=== PATIENT | female | born 1960 | race Two or more races ===

== ENCOUNTER 2018-07-23 17:55 | Emergency (ER) | payer OTHER ==
[~2018-07-23] VITALS: Ht 154.9 cm; Wt 66.2 kg
[~2018-07-23 17:55] MED LIST: NORVASC
[2018-07-23] MEDS ORDERED: HCTZ 25 MG TAB PO ONE (20:00)
[2018-07-23] MEDS ORDERED: cefTRIAXone SOD 1,000 MG VL IM ONE ×2 (20:00)
[2018-07-23] MEDS ORDERED: LISINOPRIL 20 MG TAB PO ONE (20:00)
[2018-07-23] MEDS ORDERED: ACETAMINOPHEN 500 MG TAB PO ONE ×2 (20:00)
[2018-07-23] MEDS ORDERED: cloNIDine HCL 0.1 MG TAB PO ONE (20:15)
[2018-07-23] MEDS ORDERED: ONDANSETRON ODT 4 MG TAB PO ONE (21:15)
[2018-07-23 21:52] VITALS: BP 139/81
== END 2018-07-23 22:01 | disposition home or self-care (01) ==
LOC: ER 17:56
DX: S61.012A Laceration without foreign body of left thumb without damage to nail, initial encounter (principal); I10 Essential (primary) hypertension; W26.0XXA Contact with knife, initial encounter; Y93.89 Activity, other specified; Y99.8 Other external cause status; Y92.89 Other specified places as the place of occurrence of the external cause
CPT/HCPCS: 12001; 82962; 96372; 99284; J0696; Q0162